=== PATIENT | male | born 1985 | race Two or more races ===

== ENCOUNTER → 2021-06-20 | Emergency (ER) | payer OTHER ==
[~2021-06-20] VITALS: Ht 175.3 cm; Wt 40.8 kg
[~2021-06-20] MED LIST: AZOR 10-20 MG1 EACH
== END | disposition left against medical advice (07) ==
LOC: ER 19:14
DX: L98.499 Non-pressure chronic ulcer of skin of other sites with unspecified severity (principal); Z53.29 Procedure and treatment not carried out because of patient's decision for other reasons

== ENCOUNTER 2022-02-09 08:01 | Outpatient (CLI) | payer OTHER | END 2022-02-09 08:14 | disposition home or self-care (01) | LOC: TOM 08:01 | PROVIDERS: ATTEND Colon & Rectal Surgery | DX: Z93.3 Colostomy status (principal) ==

== ENCOUNTER 2022-02-21 07:32 | Outpatient (CLI) | payer OTHER | END 2022-02-21 07:37 | disposition home or self-care (01) | LOC: RX STUDY 07:32 | PROVIDERS: ATTEND Colon & Rectal Surgery | DX: Z93.3 Colostomy status (principal) ==